=== PATIENT | male | born 1995 | race Caucasian/White ===

== ENCOUNTER 2018-12-23 15:58 | Emergency (ER) | payer BC, SELFPAY ==
[~2018-12-23] VITALS: Ht 190.5 cm; Wt 70.5 kg
[2018-12-23 18:41] VITALS: BP 117/66
--- NOTE | 2018-12-23 19:51 | REP ---
SCROTAL ULTRASOUND: Real-time sonographic evaluation of the scrotum and contents are performed. Testicles are normal in size and echotexture, right testicle measuring 4.8 x 2.2 x 3.3 cm and left testicle 4.7 x 2.1 x 3.1 cm. There is no testicular mass or torsion. Blood flow is seen in each testicle with Duplex Doppler evaluation. RI right testicle 0.57 and left testicle 0.44. Epididymis is unremarkable bilaterally. There is small left varicocele. IMPRESSION: Small left varicocele. No testicular mass or torsion. No other significant abnormality. Electronically Signed by Cesar Babcock MD 12/24/2018 09:30 A
== END 2018-12-23 18:58 | disposition home or self-care (01) ==
LOC: M ED 15:58
DX: I86.1 Scrotal varices (principal); J30.81 Allergic rhinitis due to animal (cat) (dog) hair and dander; F17.210 Nicotine dependence, cigarettes, uncomplicated

== ENCOUNTER → 2019-09-25 | Outpatient (CLI) | payer BC, OTHER ==
--- NOTE | 2019-09-25 16:41 | REP ---
Clinical: Trauma/injury . Technique: Internal rotation, external rotation, and Y view left shoulder. Findings: No acute fracture or dislocation. The acromioclavicular and glenohumeral joints are intact. No periarticular calcifications or degenerative changes are appreciated. Sub acromial space is normal. Surrounding soft tissues are unremarkable. Impression: Normal left shoulder radiographs. Electronically Signed by Tom Rodriguez MD 09/25/2019 04:32 P
== END ==
LOC: M LRY 16:16
PROVIDERS: ATTEND Physician Assistant Medical
DX: S46.002A Unspecified injury of muscle(s) and tendon(s) of the rotator cuff of left shoulder, initial encounter (principal); W00.9XXA Unspecified fall due to ice and snow, initial encounter; Y92.9 Unspecified place or not applicable

== ENCOUNTER → 2019-10-24 | Outpatient (CLI) | payer OTHER ==
--- NOTE | 2019-10-26 11:26 | REP ---
MRI LEFT SHOULDER: TECHNIQUE: Axial T2 fat sat, gradient echo, sagittal oblique T2 fat sat, coronal oblique T1, T2 fat sat. The rotator cuff tendons demonstrate no abnormal signal. There is no rotator cuff tendon tear. Acromioclavicular joint is well aligned. There is a type 2 acromion. I do not see significant hypertrophic changes at the acromioclavicular joint. Biceps tendons is within the bicipital groove with no tenosynovitis. There is no Hill-Sachs deformity. Deltoid muscle demonstrates no abnormal signal. There is no evidence of a labral tear. No paralabral cyst is seen. There is no bone marrow edema or occult fracture. A tiny amount of fluid is seen in the subacromial bursa. No other significant findings are seen. IMPRESSION: Tiny amount of fluid in the subacromial bursa could indicate very mild bursitis. No rotator cuff tear or labral tear. Electronically Signed by Cesar Babcock MD 10/26/2019 02:45 P
== END ==
LOC: M RAD 09:24
PROVIDERS: ATTEND Orthopaedic Surgery Sports Medicine
DX: S46.012A Strain of muscle(s) and tendon(s) of the rotator cuff of left shoulder, initial encounter (principal); X58.XXXA Exposure to other specified factors, initial encounter; Y92.9 Unspecified place or not applicable